=== PATIENT | female | born 1995 | race Caucasian/White ===

== ENCOUNTER 2018-02-22 21:14 | Emergency (ER) | payer OTHER ==
[2018-02-22 21:21] VITALS: TEMP 98.5; BMI 33.6
--- NOTE | 2018-02-22 21:26 | PDOC ---
History of Present Illness - General History Source: Patient Exam Limitations: No Limitations - History of Present Illness Initial Comments: 02/22/18 21:31 The patient is a 22 year old female here today for evaluation of shortness of breath. The patient reports that her shortness of breath began 30 minutes before coming to the emergency room right after she ate a meal consisting of ovi nuts (patient denies any allergies). The patient notes associated throat numbness, increased breathing, and one time incident of nausea due to increased breathing. The patient confirms being a lot of stress recently. Patient denies sore throat. PAST MEDICAL HISTORY: no significant history PAST SURGICAL HISTORY: no significant history FAMILY HISTORY: no pertinent history SOCIAL HISTORY: Pt lives with family and is employed. Denies tobacco and drug use. MEDICATIONS: reviewed ALLERGIES: As per nursing notes General: No fevers or chills, no weakness, no weight loss HEENT: No change in vision. No sore throat,. No ear pain CardioVascular: +Shortness of breath. No chest pain. Respiratory:No cough, or wheezing. Gastrointestinal: no nausea, vomiting, diarrhea or constipation, No rectal bleeding Genitourinary: No dysuria, hematuria, or frequency Musculoskeletal: No joint or muscle pain or swelling Neurologic: No headache, vertigo, dizziness or loss of consciousness Psychiatric: nor depression Skin: No rashes or easy bruising Endocrine: no increased thirst or abnormal weight change Allergic: no skin or latex allergy All other systems reviewed and normal General: Well-nourished well-developed individual, no acute distress HEENT: Throat: Normal, tonsils normal, no erythema or exudate Neck: Supple, no meningeal signs, no lymphadenopathy Eyes::Pupils equal reactive and round, extraocular motion intact Chest: Nontender to palpation Cardiac: S1-S2 normal, regular rate and rhythm, no murmurs rubs or gallops Respiratory: Lungs clear to auscultation bilateral Extremities: Warm, dry, no cyanosis, clubbing, or edema Skin: No rashes Neuro: Alert and oriented x3, nonfocal exam, grossly intact, normal gait Psych: Normal mood and affect <Fox Hart - Last Filed: 02/22/18 21:30> - General History Source: Patient Exam Limitations: No Limitations - History of Present Illness Initial Comments: 02/22/18 21:32 A portion of this note was documented by scribe services under my direction. I have reviewed the details of the note, within reason, and agree with the documentation with the following case summary and management plan written by me. Patient treated in the ED. Nursing notes are reviewed and incorporated into the medical decision-making. Vital signs reviewed. Assessment plan: This is a 22-year-old female who comes in complaining of a panic attack. Patient's describes it as a sensation that feels like her throat is closing up, if she feels short of breath palpitations and became very anxious and hyperventilated. By the time patient got here she was feeling better. Patient said symptoms of resolved at this point. She denied any rashes or itching. She denied history of similar symptoms in the past. She denied history of food ALLERGIES but said it did occur after she ate hazelnuts. Patient's exam was normal with no wheezing, no angioedema and no rash no hives. Patient was observed for half hour and discharged home <Loulou Baldwin I - Last Filed: 02/22/18 21:33> - General Chief Complaint: Respiratory Stated Complaint: FEELS LIKE THROAT CLOSING UP Time Seen by Provider: 02/22/18 21:18 Past History <Fox Hart - Last Filed: 02/22/18 21:30> - Past Medical History COPD: No - Suicide/Smoking/Psychosocial Hx Smoking History: Never smoked <Loulou Baldwin I - Last Filed: 02/22/18 21:33> - Past Medical History Allergies/Adverse Reactions: Allergies Allergy/AdvReac Type Severity Reaction Status Date / Time No Known Allergies Allergy Unverified 02/22/18 21:15 Home Medications: Ambulatory Orders NK [No Known Home Medication] 02/22/18 *Physical Exam - Vital Signs Last Vital Signs Temp Pulse Resp BP Pulse Ox 98.5 F 108 H 20 156/111 H 100 02/22/18 21:15 02/22/18 21:15 02/22/18 21:15 02/22/18 21:15 02/22/18 21:15 <Fox Hart - Last Filed: 02/22/18 21:30> - Vital Signs Last Vital Signs Temp Pulse Resp BP Pulse Ox 98.5 F 108 H 20 156/111 H 100 02/22/18 21:15 02/22/18 21:15 02/22/18 21:15 02/22/18 21:15 02/22/18 21:15 <Loulou Baldwin I - Last Filed: 02/22/18 21:33> Moderate Sedation - Procedure Monitoring Vital Signs: Procedure Monitoring Vital Signs Temperature 98.5 F 02/22/18 21:15 Pulse Rate 108 H 02/22/18 21:15 Respiratory Rate 20 02/22/18 21:15 Blood Pressure 156/111 H 02/22/18 21:15 O2 Sat by Pulse Oximetry (%) 100 02/22/18 21:15 <Fox Hart - Last Filed: 02/22/18 21:30> - Procedure Monitoring Vital Signs: Procedure Monitoring Vital Signs Temperature 98.5 F 02/22/18 21:15 Pulse Rate 108 H 02/22/18 21:15 Respiratory Rate 20 02/22/18 21:15 Blood Pressure 156/111 H 02/22/18 21:15 O2 Sat by Pulse Oximetry (%) 100 02/22/18 21:15 <Loulou Baldwin I - Last Filed: 02/22/18 21:33> *DC/Admit/Observation/Transfer - Attestations Scribe Attestion: 02/22/18 21:31 Documentation prepared by ARTURO Singer, acting as medical research scientist for Loulou Baldwin MD. <Fox Hart - Last Filed: 02/22/18 21:30> - Discharge Dispostion Decision to Admit order: No <Loulou Baldwin I - Last Filed: 02/22/18 21:33> Diagnosis at time of Disposition: Anxiety - Discharge Dispostion Disposition: HOME Condition at time of disposition: Stable - Referrals Referrals: ON STAFF,NOT [Primary Care Provider] - - Patient Instructions Additional Instructions: Return to the emergency department immediately with ANY new, persistent or worsening symptoms. Continue any medications as previously prescribed by your physician. You should follow up with your primary doctor as soon as possible regarding today's emergency department visit. . Please make sure your doctor reviews the results of your emergency evaluation. Thank you for coming to the Emergency Department today for your care. It was a pleasure to see you today. Please note that your evaluation is INCOMPLETE until you follow-up with your doctor. - Post Discharge Activity
[2018-02-22 21:48] VITALS: BP 142/104; PULSE 95
== END 2018-02-22 21:47 | disposition home or self-care (01) ==
LOC: FER 21:14
DX: F41.9 Anxiety disorder, unspecified (principal)
CPT/HCPCS: 99281-25

== ENCOUNTER 2018-02-24 10:40 | Emergency (ER) | payer OTHER ==
--- NOTE | 2018-02-24 10:50 | PDOC ---
Attending Attestation - Resident Resident Name: Dariusz Carreno - ED Attending Attestation I have performed the following: I have examined & evaluated the patient, The case was reviewed & discussed with the resident, I agree w/resident's findings & plan, Exceptions are as noted
[2018-02-24 10:59] VITALS: TEMP 98.6; BMI 34.0
[2018-02-24] MEDS ORDERED: FAMOTIDINE 20 MG TABLET PO ONE (11:26)
--- NOTE | 2018-02-24 11:26 | PDOC ---
History of Present Illness - General Chief Complaint: Chest Pain Stated Complaint: CHEST PAIN Time Seen by Provider: 02/24/18 10:49 - History of Present Illness Initial Comments: 02/24/18 11:31 Chief complaint: Chest pain History of present illness: 22-year-old female developed "burning" in her chest last night while going to sleep. This persisted this morning, although she slept well. Review of systems: Admits tenderness over the left parasternal cartilages. Denies nausea, vomiting, diarrhea, hematemesis, melena, bloody stool, eating or drinking immediately before dinner, tobacco, alcohol, nonprescription drugs, URI symptoms, sore throat, cough, fever/chills, visual or focal neurologic symptoms, vaginal bleeding or discharge, urinary tract symptoms including dysuria frequency urgency hesitancy or hematuria. Has been treated for anxiety symptoms, panic attack recently with the feeling that "her throat was closing off". 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 Past medical history: Irregular menses, unchanged. Denies possibility of . Mild obesity. Otherwise no significant medical or surgical problems including cardiac, pulmonary/asthma, diabetes, or other metabolic. Social history: As noted above, she is a student, under considerable stress due to impending exams and graduation. Denies tobacco alcohol or nonprescription drugs. She is with her family, lives in [place], but is in school here at [employer] Family history: Reviewed and noncontributory including early coronary artery disease, pulmonary disease, metabolic diseases including diabetes, cancer Physical exam: Somewhat anxious appearing female but in no acute distress, cheerful and cooperative. Mildly overweight. No tachypnea or dyspnea Afebrile, vital signs normal except for minimally elevated blood pressure of 147 /95. This has been noted in the past when under stress PERRLA, fundi benign, ENT clear. Specifically, the posterior pharynx is clear, there is no edema erythema swelling mass or exudate. Neck supple without bruit mass or nodes Chest clear. Breath sounds throughout bilaterally. No wheezes rales or rhonchi. Mild tenderness without deformity over the parasternal cartilages on the left. No crepitus. CV regular without murmur rub or gallop. Pulses full and symmetric. No JVD or edema no bruits Abdomen nondistended. Bowel sounds normal. Soft without mass tenderness organomegaly Extremities no CCE Skin clear, no rash, adequate turgor and wet mucous membranes Neurological C2 to 12 intact. Strength full and symmetric. No focal sensory or motor deficits. Gait stable and unimpaired. EKG: Normal sinus rhythm with mild sinus arrhythmia, 75/m, normal axes and intervals, no ST-T wave changes, normal EKG Impression: Symptoms are most likely due to anxiety, other possibilities are hyperacidity or costochondritis, also possibly related to anxiety Plan: Reassure. Relaxation techniques and stress reduction techniques discussed. Start H2 gary and follow-up primary physician. Return to ER if symptoms worsen or additional symptoms develop. Fully ambulatory and in no distress upon discharge with parents to follow-up as directed Past History - Past Medical History Allergies/Adverse Reactions: Allergies Allergy/AdvReac Type Severity Reaction Status Date / Time No Known Allergies Allergy Verified 02/24/18 10:41 Home Medications: Ambulatory Orders NK [No Known Home Medication] 02/22/18 COPD: No - Suicide/Smoking/Psychosocial Hx Smoking History: Never smoked Have you smoked in the past 12 months: No Information on smoking cessation initiated: No Hx Alcohol Use: No Drug/Substance Use Hx: No *Physical Exam - Vital Signs Last Vital Signs Temp Pulse Resp BP Pulse Ox 98.6 F 88 20 141/97 99 02/24/18 10:41 02/24/18 10:41 02/24/18 10:41 02/24/18 10:41 02/24/18 10:41 Moderate Sedation - Procedure Monitoring Vital Signs: Procedure Monitoring Vital Signs Temperature 98.6 F 02/24/18 10:41 Pulse Rate 88 02/24/18 10:41 Respiratory Rate 20 02/24/18 10:41 Blood Pressure 141/97 02/24/18 10:41 O2 Sat by Pulse Oximetry (%) 99 02/24/18 10:41 *DC/Admit/Observation/Transfer Diagnosis at time of Disposition: Gastric hyperacidity - Discharge Dispostion Disposition: HOME Condition at time of disposition: Stable Decision to Admit order: No - Referrals - Patient Instructions Printed Discharge Instructions: DI for Gastroesophageal Reflux Disease (GERD) Additional Instructions: Relaxation techniques, stress reduction, and exercise. In case this is hyperacidity, avoid eating before bed, began antiacid medication , and continue for approximately one week. If things stabilize, see primary physician for follow-up and monitoring If symptoms worsen or additional symptoms develop, return to emergency room. - Post Discharge Activity
[2018-02-24] MEDS ORDERED: FAMOTIDINE 20 MG TABLET ONE (11:32)
[2018-02-24 12:08] VITALS: BP 129/92; PULSE 68
--- NOTE | 2018-02-24 17:13 | EKG ---
Test Reason : Blood Pressure : / mmHG Vent. Rate : 075 BPM Atrial Rate : 075 BPM P-R Int : 148 ms QRS Dur : 088 ms QT Int : 376 ms P-R-T Axes : 048 046 035 degrees QTc Int : 419 ms NORMAL SINUS RHYTHM WITH SINUS ARRHYTHMIA NORMAL ECG NO PREVIOUS ECGS AVAILABLE Confirmed by YOSHI KOROMA, SÁNCHEZ ([id number]) on 02/24/2018 5:13:47 PM Referred By: DEBBI PARRA Confirmed By:SÁNCHEZ BELLE MD
== END 2018-02-24 12:28 | disposition home or self-care (01) ==
LOC: FER 10:40
DX: K31.89 Other diseases of stomach and duodenum (principal)
CPT/HCPCS: 93005; 99282-25